=== PATIENT | male | born 1955 | race Caucasian/White ===

== ENCOUNTER 2016-05-21 20:48 | Emergency (ER) | payer OTHER ==
[~2016-05-21] VITALS: Ht 190.5 cm; Wt 100.0 kg
[2016-05-21 20:57] VITALS: BP 144/83; PULSE 99; RESP 18; TEMP 99; O2SAT 95
--- NOTE | 2016-05-21 21:25 | PD ---
HPI Chief Complaint: GI Complaint Time Seen by Provider: 21:07 Travel History International Travel<30 days: No Contact w/Intl Traveler<30days: No Traveled to known affect area: No History of Present Illness HPI The patient is a 61 year old male who presents to the [facility] emergency department with a history of multiple systemic complaints, requiring him to be evaluated for medical clearance in the emergency department after he was placed under arrest by the police. The patient is currently under arrest due to a probation violation. The patient had a warrant out for his arrest. The patient was noted to be up in an attic hiding when he was found. The patient had 1 episode of vomiting prior to arrival and then began to complain of shortness of breath just prompting his evaluation in the emergency department. The patient reports that over the last week he has had increased productivity to his cough that is been clear to yellow in color. He reports that he has chronic nausea and vomiting usually in the mornings been present for the last 6 months. The patient has a history of acid reflux and heartburn. He denies taking any [id number] medications for this. He reports that he has not had a physical examination in many years. He reports that he smokes a pack and a half of cigarettes per day and drinks 5 beers daily. He denies using any drugs. The patient reports that he also has chronic intermittent pains in his feet with erythema. He reports that he has been diagnosed with gout in the past. The patient's left foot has recently been bothering him. He reports having discoloration and a burning sensation to the sole of his foot. The patient denies any recent fevers, cough, congestion, neck pain, abdominal pain, diarrhea, urinary symptoms, or neurologic symptoms. [facility] Past Medical History Narrative Medical The patient's past medical history is significant for daily alcohol intake, tobacco abuse. Diminished Hearing: No Tetanus Vaccination: Unknown Influenza Vaccination: No Past Surgical History Narrative Surgical The patient's past surgical history is significant for a left knee surgery. Social History Alcohol Use: Yes (DAILY) Tobacco Use: Yes (1-1.5 PPD) Substance Use: No Allergies-Medications (Allergen,Severity, Reaction): Coded Allergies: No Known Allergies (Unverified , 05/21/16) Reported Meds & Prescriptions Reported Meds & Active Scripts Active No Active Prescriptions or Reported Medications Review of Systems Except as stated in HPI: all other systems reviewed are Neg General / Constitutional: No: Fever Eyes: No: Visual changes HENT: No: Headaches Cardiovascular: Positive: Chest Pain or Discomfort, Dyspnea on exertion Respiratory: Positive: Cough, Shortness of Breath Gastrointestinal: Positive: Nausea, Vomiting, Indigestion, No: Diarrhea, Abdominal Pain, Changes in Bowel Habits, Loss of Appetite Genitourinary: No: Dysuria Musculoskeletal: No: Pain Skin: No Rash Neurologic: No: Weakness, Focal Abnormalities, Change in Mentation, Slurred Speech, Sensory Disturbance Psychiatric: No: Depression Endocrine: No: Polydipsia Hematologic/Lymphatic: No: Easy Bruising Physical Exam Narrative General: The patient is a well-developed well-nourished male in no acute distress. Head and Neck exam: Head is normocephalic atraumatic. Eyes: EOMI, pupils are equal round and reactive to light. Nose: Midline septum with pink mucous membranes Mouth: Dentition unremarkable. Moist mucus membranes. Posterior oropharynx is not erythematous. No tonsillar hypertrophy. Uvula midline. Airway patent. Neck: No palpable lymphadenopathy. No nuchal rigidity. No thyromegaly. Cardiovascular: Sinus tachycardia in the low 100s without murmurs, gallops, or rubs. No pulse deficit to the extremities on simultaneous auscultation and palpation of his radial artery. Lungs: Soft expiratory wheezes are audible in the right and left anterior lung barriga that clear with coughing. No rhonchi, no crackles. Abdomen: Soft, without tenderness to palpation in all 4 quadrants of the abdomen. No guarding, rebound, or rigidity. Normal bowel sounds are audible. No tenderness on palpation of McBurney's point. Negative Villanueva sign. Extremities: No clubbing, cyanosis, or edema. 2+ pulses in all 4 extremities. The patient on examination of the dorsum of his left foot is noted to have erythema with tenderness on palpation along the toe pads. The patient has less than 3 second capillary refill of all digits. Back: No spinous process tenderness to palpation. No costovertebral angle tenderness to palpation. Neurologic Exam: Cranial nerves 2-12 were intact on exam. Strength is 5/5 in all 4 extremities. No sensory deficits noted. Skin Exam: No rash noted. Intact skin that is warm and dry. Data Data Last Documented VS Vital Signs Date Time Temp Pulse Resp B/P Pulse Ox O2 Delivery O2 Flow Rate FiO2 05/21/16 21:50 98 Room Air 05/21/16 20:57 99.0 99 18 144/83 Orders Electrocardiogram (05/21/16 21:16) Complete Blood Count With Diff (05/21/16 21:16) Comprehensive Metabolic Panel (05/21/16 21:16) Creatine Kinase (Cpk) (05/21/16 21:16) Ckmb (Isoenzyme) Profile (05/21/16 21:16) Troponin I (05/21/16 21:16) B-Type Natriuretic Peptide (05/21/16 21:16) Lipase (05/21/16 21:16) Urinalysis - C+S If Indicated (05/21/16 21:16) Chest, Single Ap (05/21/16 21:16) Iv Access Insert/Monitor (05/21/16 21:16) Ecg Monitoring (05/21/16 21:16) Oximetry (05/21/16 21:16) Sodium Chlor 0.9% 1000 Ml Inj (Ns 1000 M (05/21/16 21:30) Ondansetron Inj (Zofran Inj) (05/21/16 21:30) Pantoprazole Inj (Protonix Inj) (05/21/16 21:30) Aspirin Chew (Aspirin Chew) (05/21/16 21:30) CKMB (05/21/16 21:38) CKMB% (05/21/16 21:38) Potassium Chloride (Kcl) (05/21/16 22:30) Labs Laboratory Tests Test 05/21/16 21:38 White Blood Count 9.3 TH/MM3 Red Blood Count 4.33 MIL/MM3 Hemoglobin 14.3 GM/DL Hematocrit 40.8 % Mean Corpuscular Volume 94.2 FL Mean Corpuscular Hemoglobin 33.0 PG Mean Corpuscular Hemoglobin 35.0 % Concent Red Cell Distribution Width 13.3 % Platelet Count 161 TH/MM3 Mean Platelet Volume 8.5 FL Neutrophils (%) (Auto) 83.7 % Lymphocytes (%) (Auto) 10.7 % Monocytes (%) (Auto) 4.8 % Eosinophils (%) (Auto) 0.5 % Basophils (%) (Auto) 0.3 % Neutrophils # (Auto) 7.8 TH/MM3 Lymphocytes # (Auto) 1.0 TH/MM3 Monocytes # (Auto) 0.4 TH/MM3 Eosinophils # (Auto) 0.0 TH/MM3 Basophils # (Auto) 0.0 TH/MM3 CBC Comment AUTO DIFF Differential Comment AUTO DIFF CONFIRMED Platelet Estimate NORMAL Platelet Morphology Comment NORMAL Red Cell Morphology Comment NORMAL Urine Color YELLOW Urine Turbidity CLEAR Urine pH 5.0 Urine Specific [place] 1.012 Urine Protein NEG mg/dL Urine Glucose (UA) NEG mg/dL Urine Ketones NEG mg/dL Urine Occult Blood NEG Urine Nitrite NEG Urine Bilirubin NEG Urine Urobilinogen LESS THAN 2.0 MG/DL Urine Leukocyte Esterase NEG Urine RBC LESS THAN 1 /hpf Urine WBC LESS THAN 1 /hpf Urine Squamous Epithelial <1 /hpf Cells Urine Hyaline Casts 1 /lpf Microscopic Urinalysis Comment CULT NOT INDICATED Sodium Level 138 MEQ/L Potassium Level 3.4 MEQ/L Chloride Level 103 MEQ/L Carbon Dioxide Level 22.3 MEQ/L Anion Gap 13 MEQ/L Blood Urea Nitrogen 16 MG/DL Creatinine 1.21 MG/DL Estimat Glomerular Filtration 61 ML/MIN Rate Random Glucose 117 MG/DL Calcium Level 9.0 MG/DL Total Bilirubin 0.2 MG/DL Aspartate Amino Transf 65 U/L (AST/SGOT) Alanine Aminotransferase 97 U/L (ALT/SGPT) Alkaline Phosphatase 68 U/L Total Creatine Kinase 241 U/L Creatine Kinase MB 1.1 NG/ML Troponin I LESS THAN 0.02 NG/ML B-Type Natriuretic Peptide 4 PG/ML Total Protein 7.3 GM/DL Albumin 3.8 GM/DL Lipase 166 U/L MDM Medical Decision Making Medical Screen Exam Complete: Yes Emergency Medical Condition: Yes Medical Record Reviewed: Yes Differential Diagnosis Acid reflux, versus pancreatitis, versus pneumonia, versus COPD exacerbation, versus bronchitis, versus aspiration. Narrative Course During the course of the patients emergency department visit, the patients history, examination, and differential diagnosis were reviewed with the patient. The patient had IV access obtained and blood work sent for analysis. The patient was placed on a monitoring manager with oximetry and blood pressure monitoring. An EKG was done on arrival. The patient's EKG shows a sinus rhythm , heart rate of 90, no acute ST segment elevation or depression. The patient was provided normal saline 1 L IV fluid bolus, Zofran 4 mg IV, Protonix 40 mg IV. The patients laboratory studies were reviewed and remarkable for a white count of 9.3, hemoglobin 14.3, platelets 161 with neutrophils 83.7. CMP is remarkable for potassium of 3.4 which was supplemented orally, glucose 117, AST 65, ALT 97, CPK and troponin I within normal limits, BNP 4, lipase 66, urinalysis is unremarkable. Radiology studies were reviewed and remarkable for a chest x-ray that is unremarkable. The patient was instructed regarding the importance of quitting smoking. The patient will follow-up with a vascular surgeon regarding the intermittent color changes in his foot and burning sensation. The patient's chest discomfort and frequent vomiting are likely related to acid reflux symptoms. The patient was instructed to start ranitidine and was given a prescription at discharge. The patient was discharged into police custody. The patient is resting comfortably and feels better, is alert and in no distress. The patients results and examination findings were discussed with the patient. The repeat examination is unremarkable and benign. The history, exam, diagnostic testing, and current condition do not suggest any significant pathology to warrant further testing, continued ED treatment, admission, or surgical evaluation at this point. The vital signs have been stable. The patient does not have uncontrollable pain, intractable vomiting, or other significant symptoms. The patient's condition is stable and appropriate for discharge. The patient will pursue further outpatient evaluation with a primary care physician or other designated or consulting physician as indicated in the discharge instructions. The patient expressed understanding and was agreeable with this plan. Diagnosis Primary Impression: Acid reflux Qualified Code: K21.9 - Gastroesophageal reflux disease, esophagitis presence not specified Additional Impressions: Alcohol abuse Tobacco abuse Foot pain, left Referrals: Sebastian Mitchell MD 1 week The patient is instructed to follow-up with a vascular surgeon regarding the intermittent color changes and burning in his left foot. This could be related to a vascular problem in the left foot. [facility] 2 days Patient Assistance Program 2 days Patient Instructions: Gastroesophageal Reflux Disease (ED), General Instructions, How to Stop Smoking (ED) Med/Other Pt SpecificInfo: Prescription(s) given Scripts Ranitidine 150 Mg [id number] Mg PO BID #60 TAB Ref 0 Prov:Cornelia Vitale MD 05/21/16 Disposition: 01 DISCHARGE HOME Condition: Stable Cornelia Vitale MD May 21, 2016 21:25
[2016-05-21] MEDS ORDERED: ONDANSETRON HCL 4 MG/2 ML VIAL IV ONE (21:30)
[2016-05-21] MEDS ORDERED: ASPIRIN 81 MG CHEW TAB CHEW ONE (21:30)
[2016-05-21] MEDS ORDERED: PANTOPRAZOLE SODIUM 40 MG VIAL IV PUSH ONE (21:30)
[2016-05-21] MEDS ORDERED: SODIUM CHLOR 0.9% 1000 ML INJ 1,000 ML IV ONE (21:30)
--- NOTE | 2016-05-21 21:39 | RADRPT ---
EXAM DATE/TIME: 05/21/2016 21:26 [facility] COMPARISON: No previous studies available for comparison. INDICATIONS : Vomiting and chest pain for the past week. MEDICAL HISTORY : None. SURGICAL HISTORY : None. ENCOUNTER: Initial ACUITY: 1 week PAIN SCORE: 5/10 LOCATION: Bilateral chest FINDINGS: The lungs are clear without infiltrate, nodule, or mass. There is no appreciable pleural effusion fo r technique. Heart and mediastinum are unremarkable. There are old healed rib fractures in the left chest. CONCLUSION: No acute cardiopulmonary disease. Jalyn Robles MD on May 21, 2016 at 21:38 Board Certified Radiologist. This report was verified electronically.
[2016-05-21 21:48] LABS: AUTOMATED NEUTROPHIL # 7.8 TH/MM3 (1.8-7.7); BASOPHIL % 0.3 % (0.0-2.0); EOSINOPHIL % 0.5 % (0.0-4.0); HEMATOCRIT 40.8 % (39.0-51.0); LYMPH % 10.7 % (9.0-44.0); MEAN CELL VOLUME 94.2 FL (80.0-100.0); MONO % 4.8 % (0.0-8.0); NEUT % 83.7 % (16.0-70.0); PLATELET COUNT 161 TH/MM3 (150-450); RED BLOOD COUNT 4.33 MIL/MM3 (4.50-5.90); RED CELL DISTRIBUTION WIDTH 13.3 % (11.6-17.2); WHITE BLOOD COUNT 9.3 TH/MM3 (4.0-11.0)
[2016-05-21 21:50] VITALS: O2SAT 98
[2016-05-21 21:50] LABS: BLOOD, URINE NEG (NEG); COMMENT (UR) CULT NOT INDICATED; CULTURE IF INDICATED CULT NOT INDICATED; GLUCOSE,URINE NEG (NEG); HYALINE CAST, URINE 1 /lpf (RARE); KETONE, URINE NEG (NEG); NITRITE,URINE NEG (NEG); SQUAMOUS EPITHELIAL CELL URINE <1 /hpf (0-5); URINE COLOR YELLOW (YELLW/STRAW)
[2016-05-21 21:53] LABS: HEMO FLAGS AUTO DIFF
[2016-05-21 22:08] LABS: ANION GAP 13 MEQ/L (5-15); AST (GOT) 65 U/L (15-37); BICARBONATE 22.3 MEQ/L (21.0-32.0); BLOOD UREA NITROGEN 16 MG/DL (7-18); CHLORIDE 103 MEQ/L (98-107); GLOMERULAR FILTRATION RATE 61 ML/MIN (>89); POTASSIUM 3.4 MEQ/L (3.5-5.1); SODIUM (NA) 138 MEQ/L (136-145)
[2016-05-21 22:13] LABS: ALKALINE PHOSPHATASE 68 U/L (45-117); ALT (GPT) 97 U/L (12-78); CREATINE KINASE 241 U/L (39-308); TOTAL BILIRUBIN ADULT 0.2 MG/DL (0.2-1.0)
[2016-05-21 22:15] LABS: PLATELET ESTIMATE SMEAR NORMAL (NORMAL); PLATELET MORPHOLOGY NORMAL (NORMAL); SCAN/DIFF AUTO DIFF CONFIRMED
[2016-05-21 22:25] LABS: CKMB 1.1 NG/ML (0.5-3.6)
[2016-05-21] MEDS ORDERED: RANI150T PO (22:27)
[2016-05-21] MEDS ORDERED: POTASSIUM CHLORIDE 20 MEQ CONTROLLED RELEASE TAB PO ONE (22:30)
--- NOTE | 2016-05-22 10:28 | EKG ---
Date Performed: 05/21/2016 Time Performed: 21:48:05 PTAGE: 61 years EKG: Sinus rhythm NONSPECIFIC T-WAVE ABNORMALITY BORDERLINE ECG NO PREVIOUS TRACING DOCTOR: Marion Ruiz Interpretating Date/Time 05/22/2016 10:24:54
== END 2016-05-21 22:54 | disposition home or self-care (01) ==
LOC: NEPC 20:48
DX: K21.9 Gastro-esophageal reflux disease without esophagitis (principal); F17.210 Nicotine dependence, cigarettes, uncomplicated; F10.10 Alcohol abuse, uncomplicated; R00.0 Tachycardia, unspecified; M79.672 Pain in left foot
CPT/HCPCS: 71010; 80053; 81001; 82550; 82552; 83690; 83880; 84484; 85025; 93005; 96361; 96374; 96375; 99284; C9113; J2405; J7030

== ENCOUNTER 2016-05-26 16:20 | Emergency (ER) | payer OTHER ==
[~2016-05-26] VITALS: Ht 190.5 cm; Wt 95.0 kg
[~2016-05-26 16:20] MED LIST: RANI150T PO
[2016-05-26 16:32] VITALS: BP 147/95; PULSE 87; RESP 16; TEMP 98.5; O2SAT 98
--- NOTE | 2016-05-26 16:41 | PD ---
HPI Chief Complaint: Back/ Neck Pain or Injury Time Seen by Provider: 16:37 Travel History International Travel<30 days: No Contact w/Intl Traveler<30days: No Traveled to known affect area: No History of Present Illness HPI 61-year-old white male presents for medical clearance for snf. I am given a piece of paper from the guard. It appears that the patient was sent over from the snf to rule out possible blood clot in the left leg due to a possible vascular problem. He was seen at [facility] emergency Department on . At that time he had a mildly elevated d-dimer 1.38. He was started on Lovenox shots. He was advised to follow-up with a vascular surgeon. Allegedly the patient had an ultrasound at that time which did not show a DVT. Here he denies any plan of any pain associated with arterial occlusion or DVT. He states that he has had bruising and color change in his left foot for appeared approximately 3 weeks. He then goes on to give a story of a fall. The patient states that he had fallen in the police van striking his right head earlier and also had caught his left foot and the horrible chain around his ankles. He is complaining of pain in his left foot as well as his right temporal region. The patient is a poor historian. It is somewhat confusing trying to relate the events of the discoloration/ecchymosis of the left foot and his evaluations and treatment at [facility] and his most recent fall. He denies syncope. No neck or back pain. No numbness or tingling. He states the pain is mostly in his left foot. [id number] in intensity. Worse with walking. He denies any injury to his chest or abdomen. [facility] Past Medical History Narrative Medical GERD. Denies hypertension and diabetes Diminished Hearing: No Tetanus Vaccination: < 5 Years Past Surgical History Surgical History: No Previous Surgery Social History Alcohol Use: Yes (DAILY) Tobacco Use: Yes (1-1.5 PPD) Substance Use: Yes (marijuana on occasion) Allergies-Medications (Allergen,Severity, Reaction): Coded Allergies: No Known Allergies (Unverified , 05/21/16) Reported Meds & Prescriptions Reported Meds & Active Scripts Active Ranitidine (Ranitidine HCl) 150 Mg Tab 150 Mg PO BID Review of Systems Except as stated in HPI: all other systems reviewed are Neg Physical Exam Narrative GENERAL: Well-developed, well-nourished in no apparent distress. Nontoxic appearing. HEAD: Normocephalic, there is a small area of ecchymosis to the right temporal region and cheek. There is no bony step off. Only minimal tenderness to light touch. EYES: Pupils equal round and reactive. Extraocular motions intact. No scleral icterus. No injection or drainage. ENT: Nose clear. Throat without erythema, tonsillar hypertrophy or exudate. Uvula midline. Airway patent. No hemotympanum. NECK: Trachea midline. Supple, nontender, moves head freely. No central bony tenderness or spasm. CARDIOVASCULAR: Regular rate and rhythm without murmurs, gallops, or rubs. RESPIRATORY: Clear to auscultation. Breath sounds equal bilaterally. No wheezes , rales, or rhonchi. GASTROINTESTINAL: Abdomen soft, non-tender, nondistended. No hepato-splenomegaly , or palpable masses. No guarding. EXTREMITIES: No clubbing, cyanosis, or edema. Examination of the left foot reveals ecchymosis in the toes. The toenails are intact. No subungual hematoma. He complains of pain in all of his toes and proximal forefoot. He has intact sensation with good distal pulses. No pain in the heel, ankle, knee or hip. The right lower extremity as well as upper extremity is are unremarkable for acute bony tenderness or deformity. Patient has strong audible pulses in the foot and the dorsalis pedis and posterior tibialis pulse with the pencil Doppler. BACK: Nontender without deformity. No flank tenderness. NEUROLOGICAL: Awake, alert and oriented x 3 .Cranial nerves grossly intact. Motor and sensory grossly within normal limits. Normal speech. Data Data Last Documented VS Vital Signs Date Time Temp Pulse Resp B/P Pulse Ox O2 Delivery O2 Flow Rate FiO2 05/26/16 16:47 97 05/26/16 16:32 98.5 87 16 147/95 Orders Foot, Complete ([id number]) (05/26/16 16:34) Ice/Cold Pack (05/26/16 16:34) Acetamin-Hydrocod 325-5 Mg ([place] 5-325 (05/26/16 16:45) Ed Poc Ultrasound (05/26/16 16:46) MDM Medical Decision Making Medical Screen Exam Complete: Yes Emergency Medical Condition: Yes Medical Record Reviewed: Yes Interpretation(s) Left foot: Negative for fracture. Pencil Doppler: Positive lower audible dorsalis pedis and posterior tibialis pulse. Left leg duplex Doppler ultrasound: This is performed at bedside by my attending physician. No DVT noted. He has a compressible femoral vein from the groin to the foot. Differential Diagnosis MDM: High Differential diagnoses: Fracture, sprain, strain, dislocation, contusion, neurovascular injury Narrative Course Patient's injury to the head is minor. I see no evidence of any significant head injury. Imaging of the head is not indicated. He does have bruising of the left toes. X-ray of the left foot is been ordered. He is given Lortab 5 milligram by mouth for pain. The patient is complaining of bruising to the left foot has been evaluated. He has a negative venous ultrasound as well as a pencil Doppler. X-ray of the foot is also negative. Etiology is not 100% clear. There is reports of trauma with a chain hobble as well as prior ecchymosis. At this point we do not see any evidence of an arterial or vascular occlusion. The patient is been medically cleared and sent back to the snf. This is left foot ecchymosis etiology unclear Diagnosis Primary Impression: left foot ecchymosis etiology unclear Patient Instructions: General Instructions Additional Instructions: Rest. Elevation. Tylenol or Advil for pain. Follow-up with a medical doctor or vascular surgeon next week for a second opinion. Return to the ER for emergencies. Med/Other Pt SpecificInfo: Prescription(s) given Disposition: [address] LAW ENFORCEMNT Condition: Stable Kar Reynolds May 26, 2016 16:41
[2016-05-26] MEDS ORDERED: ACETAMINOPHEN/HYDROcodone 325 MG/5 MG TAB PO ONE (16:45)
[2016-05-26 16:47] VITALS: O2SAT 97
--- NOTE | 2016-05-26 17:15 | PD ---
Physical Exam Date Seen by Provider: May 26, 2016 Narrative This is an inmate who was sent to us for left lower extremity pain. He reportedly had an elevated d-dimer at an outside hospital a couple days ago. Paperwork from group home says that he was sent here for rule out DVT. Data Data Last Documented VS Vital Signs Date Time Temp Pulse Resp B/P Pulse Ox O2 Delivery O2 Flow Rate FiO2 05/26/16 16:47 97 05/26/16 16:32 98.5 87 16 147/95 Orders Foot, Complete ([id number]) (05/26/16 16:34) Ice/Cold Pack (05/26/16 16:34) Acetamin-Hydrocod 325-5 Mg ([place] 5-325 (05/26/16 16:45) Ed Poc Ultrasound (05/26/16 16:46) MDM Supervised Visit with NICKOLAS: Yes Narrative Course I, Dr. Davis, have reviewed the advance practice practitioner's documentation and am in agreement, met with the patient face to face, made the diagnosis, and the medical decision making was done by me. *My assessment and Findings: His leg has a normal appearance. He has normal distal pulses. Procedures Procedure Narrative Venous ultrasound Venous ultrasound was done from the left groin to the left popliteal fossa. The vein was compressible along its entire course. Patient Instructions: General Instructions Disposition: [address] LAW ENFORCEMNT Condition: Stable Oumou Davis MD May 26, 2016 17:15
--- NOTE | 2016-05-26 17:26 | RADRPT ---
EXAM DATE/TIME: 05/26/2016 16:59 [facility] COMPARISON: No previous studies available for comparison. INDICATIONS : Trauma. Pain in left foot. Swelling. Possible blood clot. MEDICAL HISTORY : History of fracture. SURGICAL HISTORY : None. ENCOUNTER: Initial ACUITY: 3 weeks PAIN SCORE: 8/10 LOCATION: Left FINDINGS: Three view examination of the left foot demonstrates no soft tissue swelling, dislocation, or fractur e. The tarsal bones appear intact. The interphalangeal and metatarsophalangeal joints are intact. The calcaneus is intact. Bony mineralization is normal. CONCLUSION: Normal examination for a patient of this age. Augustus Yanes MD on May 26, 2016 at 17:24 Board Certified Radiologist. This report was verified electronically.
[2016-05-26 17:51] VITALS: BP 141/83
== END 2016-05-26 18:12 ==
LOC: NEPD 16:20
DX: S90.32XA Contusion of left foot, initial encounter (principal); X58.XXXA Exposure to other specified factors, initial encounter
CPT/HCPCS: 73630; 99283